=== PATIENT | female | born 1975 | race Caucasian/White ===

== ENCOUNTER 2018-09-18 19:22 | Emergency (ER) | payer BC ==
--- NOTE | 2018-09-18 19:48 | EDM.PDOC ---
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 She denies any pain in her ankle Achilles foot or knee. Review of systems: As per history of present illness and below otherwise all systems reviewed and negative. Past medical history: As per history of present illness and as reviewed below otherwise noncontributory. Surgical history: As per history of present illness and as reviewed below otherwise noncontributory. Social history: No reported history of drug or alcohol abuse. Family history: As per history of present illness and as reviewed below otherwise noncontributory. Physical exam: HEENT: Atraumatic, normocephalic, pupils reactive, negative for conjunctival pallor or scleral icterus, mucous membranes moist, throat clear, neck supple, nontender, trachea midline. Lungs: Clear to auscultation, breath sounds equal bilaterally, chest nontender. Heart: S1S2, regular, negative for clicks, rubs, or JVD. Abdomen: Soft, nondistended, nontender. Negative for masses or hepatosplenomegaly. Negative for costovertebral tenderness. Pelvis: Stable nontender. Genitourinary: Deferred. Rectal: Deferred. Extremities: Patient has some mild tenderness over left calf is no significant swelling or cords neurovascular exam CMS is unremarkable Neuro: Awake, alert, oriented. Cranial nerves II through XII unremarkable. Cerebellum unremarkable. Motor and sensory unremarkable throughout. Exam nonfocal. Diagnostics: None Therapeutics: Crutches Impression: #1 acute left calf injury probable muscle skeletal injury Definitive disposition and diagnosis as appropriate pending reevaluation and review of above. - Related Data Allergies Allergy/AdvReac Type Severity Reaction Status Date / Time adhesive Allergy Blisters Verified 09/18/18 19:44 adhesive tape Allergy Blisters Verified 09/18/18 19:44 codeine Allergy Vomiting Verified 09/18/18 19:44 prochlorperazine Allergy Headache Verified 09/18/18 19:44 [From Compazine] prochlorperazine edisylate Allergy Headache Verified 09/18/18 19:44 [From Compazine] prochlorperazine maleate Allergy Headache Verified 09/18/18 19:44 [From Compazine] Home Meds: Home Meds Lurasidone HCl [Latuda] 1 tab PO DAILY 04/29/16 [History] QUEtiapine Fumarate [Seroquel] 1 tab PO DAILY 04/29/16 [History] DULoxetine [Cymbalta] 60 mg PO DAILY 09/18/18 [History] [place] Carbonate 600 mg PO BID 09/18/18 [History] Past Medical History - Past Health History Medical/Surgical History: Denies Medical/Surgical History Neurological History: Reports: Migraines Other Neuro History: Pt stated "I had this migraine on and off, but last night it was worse until today". She mentioned thought that she was not diagnosed with migraine by any doctor in the past. She said though that she was prescribed Imitrix but has not taken the medication for a while. Psychiatric History: Reports: ADD, Anxiety, Other (See Below) Other Psychiatric History: difficulty sleeping Hematologic History: Reports: Anemia - Infectious Disease History Infectious Disease History: Reports: Chicken Pox - Past Surgical History Female Surgical History: Reports: Section Social & Family History - Family History Family Medical History: Noncontributory - Caffeine Use Caffeine Use: Reports: Coffee Caffeine Use Comment: 4cups/day Review of Systems - Review of Systems Review Of Systems: ROS reveals no pertinent complaints other than HPI. ED EXAM, GENERAL - Physical Exam Exam: See Below (See dictation) Departure - Departure Time of Disposition: 19:47 Disposition: Home, Self-Care 01 Condition: Good, Fair Clinical Impression: Injury of calf - Discharge Information Referrals: PCP,None [Primary Care Provider] - Additional Instructions: The following information is given to patients seen in the emergency department who are being discharged to home. This information is to outline your options for follow-up care. We provide all patients seen in our emergency department with a follow-up referral. The need for follow-up, as well as the timing and circumstances, are variable depending upon the specifics of your emergency department visit. If you don't have a primary care physician on staff, we will provide you with a referral. We always advise you to contact your personal physician following an emergency department visit to inform them of the circumstance of the visit and for follow-up with them and/or the need for any referrals to a consulting specialist. The emergency department will also refer you to a specialist when appropriate. This referral assures that you have the opportunity for followup care with a specialist. All of these measure are taken in an effort to provide you with optimal care, which includes your followup. Under all circumstances we always encourage you to contact your private physician who remains a resource for coordinating your care. When calling for followup care, please make the office aware that this follow-up is from your recent emergency room visit. If for any reason you are refused follow-up, please contact the [facility] emergency department at and asked to speak to the emergency department charge nurse. [facility] Professional [address], [address] [place] [address] Tramadol as prescribed crutches as directed follow-up orthopedic clinic above return as needed as discussed
[2018-09-18] MEDS ORDERED: traMADol 50 MG Tab PO ONE (20:01)
[2018-09-18] MEDS ORDERED: traMADol 50 MG Tab ONE (20:02)
[2018-09-18 20:30] VITALS: BP 150/92
== END 2018-09-18 20:00 | disposition home or self-care (01) ==
LOC: MW.ED 19:22
DX: S89.92XA Unspecified injury of left lower leg, initial encounter (principal); Z88.5 Allergy status to narcotic agent; Z91.09 Other allergy status, other than to drugs and biological substances; X50.9XXA Other and unspecified overexertion or strenuous movements or postures, initial encounter
CPT/HCPCS: 99283; A9270

== ENCOUNTER 2021-12-14 15:32 | Emergency (ER) | payer BC ==
[2021-12-14] MEDS ORDERED: Sodium Chloride 0.9% 1,000 ML IV ONE (17:39)
[2021-12-14] MEDS ORDERED: LORazepam 2 MG/ML SDV IVPUSH ONE (17:39)
[2021-12-14] MEDS ORDERED: ceFAZolin 1 GM in Premix Bag 1 BAG IV SCH (18:45)
[2021-12-14 18:58] LABS: POTASSIUM,K 3.2 mmol/L (3.5-5.1)
[2021-12-14 19:08] LABS: INFLUENZA A NAA NEGATIVE (NEGATIVE); INFLUENZA B NAA NEGATIVE (NEGATIVE)
[2021-12-14] MEDS ORDERED: Clindamycin Phosphate in D5W 900 MG in Premix Bag 1 BAG IV ONE ×2 (19:19)
[2021-12-14] MEDS ORDERED: VANCOmycin 2 GM/400 ML 400 ML IV ONE (19:45)
[2021-12-14] MEDS ORDERED: Iopamidol 755 MG/ML 500 ML Multipack Bottle IVPUSH ONE (21:43)
[2021-12-15 03:14] VITALS: BP 142/87; PULSE 76
== END 2021-12-15 03:00 | disposition home or self-care (01) ==
LOC: MW.ED 15:32
DX: I80.8 Phlebitis and thrombophlebitis of other sites (principal); L02.413 Cutaneous abscess of right upper limb; I10 Essential (primary) hypertension; F17.210 Nicotine dependence, cigarettes, uncomplicated; Z88.5 Allergy status to narcotic agent; Z88.8 Allergy status to other drugs, medicaments and biological substances; Z20.822 Contact with and (suspected) exposure to COVID-19
CPT/HCPCS: 36415; 71045; 73201; 80053; 82550; 83605; 84443; 84703; 85025; 85652; 86140; 87040; 87070; 87075; 87205; 87389; 87635; 96361; 96365; 96366; 96367; 96375; 99284; J0690; J2060; J3370; J3490; J7030; Q9967; U0002

== ENCOUNTER 2022-09-18 02:20 | Emergency (ER) | payer BC ==
[2022-09-18] MEDS ORDERED: Sodium Chloride 0.9% 2.5 ML Syringe FLUSH PRN (03:14)
[2022-09-18] MEDS ORDERED: Lidocaine 2% 5 ML SDV INJECT ONE (03:14)
[2022-09-18] MEDS ORDERED: Sodium Chloride 0.9% 10 ML Syringe FLUSH PRN (03:14)
[2022-09-18 03:43] LABS: BASOPHILS PERCENT AUTO 0.2 % (0.0-1.5); EOSINOPHILS ABSOLUTE AUTO 0.1 K/uL (0.0-0.7); EOSINOPHILS PERCENT AUTO 2.4 % (0.0-7.0); HEMATOCRIT 31.3 % (36.0-46.0); HEMOGLOBIN 10.5 g/dL (12.0-16.0); LYMPHOCYTES ABSOLUTE AUTO 1.4 K/uL (0.6-2.4); MEAN CORPUSCULAR HGB CONC 33.5 g/dL (31.0-37.0); MEAN CORPUSCULAR VOLUME 74.5 fL (80.0-98.0); MONOCYTES ABSOLUTE AUTO 0.3 K/uL (0.0-0.8); MONOCYTES PERCENT AUTO 6.5 % (0.0-15.0); NEUTROPHILS ABSOLUTE AUTO 2.8 K/uL (1.4-5.7); NEUTROPHILS PERCENT AUTO 60.9 % (48.0-80.0); PLATELET COUNT,PLT 240 K/uL (150-400)
[2022-09-18 04:53] LABS: A/G RATIO 0.9 (0.9-1.6); ALBUMIN 3.3 g/dL (3.4-5.0); BILIRUBIN TOTAL 0.4 mg/dL (0.2-1.0); CALCIUM 8.9 mg/dL (8.5-10.1); CARBON DIOXIDE,CO2 21.3 mmol/L (21.0-32.0); CREATININE 0.7 mg/dL (0.6-1.0); EST CRCL DRUG DOSING (CG) 97.65 mL/min; POTASSIUM,K 2.9 mmol/L (3.5-5.1)
[2022-09-18] MEDS ORDERED: Potassium Chloride 20 MEQ Tab.ER PO ONE (05:13)
[2022-09-18 05:37] VITALS: BP 150/90; PULSE 80
== END 2022-09-18 05:29 | disposition home or self-care (01) ==
LOC: MW.ED 02:20
DX: L02.512 Cutaneous abscess of left hand (principal); L02.511 Cutaneous abscess of right hand; R07.89 Other chest pain; E78.00 Pure hypercholesterolemia, unspecified; I10 Essential (primary) hypertension; J45.909 Unspecified asthma, uncomplicated; Z88.5 Allergy status to narcotic agent; Z91.048 Other nonmedicinal substance allergy status; Z88.8 Allergy status to other drugs, medicaments and biological substances; Z79.899 Other long term (current) drug therapy; Z86.16 Personal history of COVID-19; Z72.0 Tobacco use
CPT/HCPCS: 10061; 36415; 71045; 80053; 84484; 85025; 93005; 99285; A9270; J3490